=== PATIENT | male | born 1950 | race Caucasian/White ===

== ENCOUNTER 2022-07-26 08:56 | Emergency (ER) | payer MEDICARE, OTHER ==
[2022-07-26] MEDS ORDERED: Midazolam 1 MG/ML 2 ML SDV ONE ×2 (09:13→09:38)
[2022-07-26] MEDS ORDERED: Atropine 0.1 MG/ML 10 ML Syringe IVPUSH ONE (09:18)
[2022-07-26] MEDS ORDERED: Midazolam 1 MG/ML 2 ML SDV IVPUSH ONE (09:38)
[2022-07-26 09:40] LABS: ESTIMATED GFR 72 mL/min (>60)
== END 2022-07-26 09:52 ==
LOC: FB.ED 08:56
DX: I44.2 Atrioventricular block, complete (principal); R55 Syncope and collapse; R73.9 Hyperglycemia, unspecified; E80.6 Other disorders of bilirubin metabolism
CPT/HCPCS: 36415; 80053; 80307; 83735; 83880; 84443; 84484; 85025; 85379; 85610; 86140; 92950; 93005; 96374; 96375; 99285; J0461; J2250; 93010